=== PATIENT | female | born 1990 | race Hispanic/Latino ===

== ENCOUNTER 2017-05-27 10:14 | Emergency (ER) | payer SELFPAY ==
[2017-05-27] MEDS ORDERED: Povidone Iodine Oint 10% Foilpak UD ONE (10:42)
[2017-05-27 10:49] VITALS: BP 112/75; PULSE 75; RESP 19; TEMP 98; O2SAT 100
--- NOTE | 2017-05-27 10:53 | ED PDOC ---
HPI: General Adult Time Seen by Provider: 05/27/17 10:50 Chief Complaint (Nursing): Abnormal Skin Integrity Chief Complaint (Provider): abscess History Per: Patient, Family (27 y/o female here with swelling noted upper back x 2 days. Denies any fevers or chills. States she does not have insurance or pmd and is here for evaluation.) Past Medical History Reviewed: Historical Data, Nursing Documentation, Vital Signs Vital Signs: Last Vital Signs Temp 98.0 F 05/27/17 10:44 Pulse 75 05/27/17 10:44 Resp 19 05/27/17 10:44 BP 112/75 05/27/17 10:44 Pulse Ox 100 05/27/17 10:44 - Family History Family History: States: No Known Family Hx - Allergies Allergies/Adverse Reactions: Allergies Allergy/AdvReac Type Severity Reaction Status Date / Time No Known Allergies Allergy Verified 05/27/17 10:44 Review of Systems ROS Statement: Except As Marked, All Systems Reviewed And Found Negative Physical Exam - Reviewed Nursing Documentation Reviewed: Yes Vital Signs Reviewed: Yes - Physical Exam Appears: Positive for: Well, Non-toxic, No Acute Distress Head Exam: Positive for: ATRAUMATIC, NORMAL INSPECTION, NORMOCEPHALIC Skin: Positive for: Normal Color (1.5 cm region of induration noted with small pustule. No surrounding erythema), Warm Eye Exam: Positive for: EOMI, Normal appearance, PERRL ENT: Positive for: Normal ENT Inspection Neck: Positive for: Normal, Painless ROM Cardiovascular/Chest: Positive for: Regular Rate, Rhythm Respiratory: Positive for: CNT, Normal Breath Sounds Gastrointestinal/Abdominal: Positive for: Normal Exam, Bowel Sounds, Soft Back: Positive for: Normal Inspection Extremity: Positive for: Normal ROM Neurologic/Psych: Positive for: Alert, Oriented - ECG O2 Sat by Pulse Oximetry: 100 - Progress ED Course And Treament: Verbal consent obtained prior to procedure. Abscess drained with 18 Gauge needles 0.2 ml of prululent discharge noted. Disposition - Clinical Impression Clinical Impression: Abscess - Patient ED Disposition Is Patient to be Admitted: No - Disposition Referrals: FAMILY PROVIDER,NO [Primary Care Provider] - [facility] [Outside] Disposition: Routine/Home Disposition Time: 10:53 Condition: FAIR Additional Instructions: F/U WITH [facility] OR ED IN 2-3 DAYS FOR RE-EVALUATION/WORSENING SYMPTOMS. . Instructions: Abscess (ED) Forms: [employer] (Slovenian)
== END 2017-05-27 11:17 | disposition home or self-care (01) ==
LOC: H.ER 10:14 → SUPCPDRO 10:14 → H.ER 11:17
DX: L02.212 Cutaneous abscess of back [any part, except buttock and flank] (principal)